=== PATIENT | female | born 1960 | race Caucasian/White ===

== ENCOUNTER 2018-02-13 15:03 | Emergency (ER) | payer OTHER ==
--- NOTE | 2018-02-13 15:44 | ED Physician Documentation ---
History of Present Illness - Stated complaint Stated Complaint: LF CALF PX - Chief complaint Chief Complaint: Ext Problem - History obtained from History obtained from: Patient - History of Present Illness Timing: How many weeks ago (0.5) Pain level max: 5 Pain level now: 4 Improved by: rest Worsened by: walking - Additonal information Additional information: Patient is visiting from [facility]. States she has had a tightness in her left calf for the past week and a half. [place] she felt a pop in the left calf and had increasing pain. Has not had any recent long distance travel, surgeries or immobilization. No history of DVT. No redness or swelling. Pain is worse with movement and better with rest Review of Systems Constitutional: denies: Fever, Chills Cardiac: denies: Chest pain / pressure, Palpitations Respiratory: denies: Cough, Wheezing GI: denies: Abdominal Pain, Vomiting, Diarrhea Skin: denies: Rash Musculoskeletal: denies: Neck pain, Back pain Neurologic: denies: Headache PD PAST MEDICAL HISTORY - Past Medical History Past Medical History: No Cardiovascular: None Respiratory: None Neuro: None Endocrine/Autoimmune: None GI: None [employer]PER[employer]OR: None : None HEENT: None Psych: None Musculoskeletal: None Derm: None - Past Surgical History Past Surgical History: Yes /[employer]PER[employer]OR: Hysterectomy - Present Medications Home Medications: Ambulatory Orders Medication Instructions Recorded Confirmed Ibuprofen [Motrin] 800 mg PO Q8H PRN #30 tablet 02/13/18 - Allergies Allergies/Adverse Reactions: Allergies Allergy/AdvReac Type Severity Reaction Status Date / Time No Known Drug Allergies Allergy Verified 02/13/18 15:22 - Social History Does the pt smoke?: No Smoking Status: Never smoker Does the pt drink ETOH?: Yes Does the pt have substance abuse?: No - Immunizations Immunizations are current?: Yes - POLST Patient has POLST: No PD ED PE NORMAL - Vitals Vital signs reviewed: Yes - General General: Alert and oriented X 3, No acute distress - HEENT HEENT: Moist mucous membranes - Neck Neck: Supple, no meningeal sign - Cardiac Cardiac: RRR - Respiratory Respiratory: No respiratory distress, Clear bilaterally - Derm Derm: Warm and dry - Extremities Extremities: Other (L calf - Mild tenderness to palpation mid calf. No palpable cord. Neurovascularly intact. Chirinos's test indicates an intact Achilles) - Neuro Neuro: Alert and oriented X 3 Results - Vitals Vitals: Vital Signs - 24 hr 02/13/18 02/13/18 15:19 17:35 Temperature 36.5 C 36.6 C Heart Rate 102 H 85 Respiratory 19 14 Rate Blood Pressure 149/92 H 132/110 H O2 Saturation 96 99 Oxygen O2 Source Room air - Rads (name of study) Duplex ultrasound left lower extremity Radiology: Prelim report reviewed, EMP read contemporaneously, See rad report (No DVT) PD MEDICAL DECISION MAKING - ED course Complexity details: reviewed results, re-evaluated patient, considered differential, d/w patient ED course: Patient is a 57-year-old female who presents to the emergency department with what appears to be a left calf strain. No evidence of Achilles injury. Placed in an Dustin wrap around the calf for comfort and feels better. Will make weightbearing as tolerated. No DVT on ultrasound. Patient counseled regarding signs and symptoms for which I believe and urgent re-evaluation would be necessary. Patient with good understanding of and agreement to plan and is comfortable going home at this time This document was made in part using voice recognition software. While efforts are made to proofread this document, sound alike and grammatical errors may occur. - Sepsis Event Vital Signs: Vital Signs - 24 hr 02/13/18 02/13/18 15:19 17:35 Temperature 36.5 C 36.6 C Heart Rate 102 H 85 Respiratory 19 14 Rate Blood Pressure 149/92 H 132/110 H O2 Saturation 96 99 Oxygen O2 Source Room air Departure - Departure Disposition: 01 Home, Self Care Clinical Impression: Strain of calf muscle Qualifiers: Encounter type: initial encounter Laterality: left Qualified Code(s): S86.812A - Strain of other muscle(s) and tendon(s) at lower leg level, left leg, initial encounter Condition: Good Instructions: ED Strain Muscle Ext Follow-Up: KAT PRIETO MD [Primary Care Provider] - Within 1 week Prescriptions: Ibuprofen [Motrin] 800 mg PO Q8H PRN #30 tablet PRN Reason: PAIN &/OR FEVER Comments: Your ultrasound is normal today. This likely represents a muscular strain. You may bear weight as tolerated. Return if you worsen. Discharge Date/Time: 02/13/18 17:37
[2018-02-13 17:36] VITALS: BP 132/110
--- NOTE | 2018-02-13 17:42 | Ultrasound Report ---
Reason: L calf pain x1.5 weeks Procedure Date: 02/13/2018 Accession Number: [id number] / [id number] Procedure: US - Duplex Ext Veins Left CPT Code: FULL RESULT: EXAM: LEFT LOWER EXTREMITY VENOUS ULTRASOUND EXAM DATE: 02/13/2018 04:33 PM. CLINICAL HISTORY: Left calf pain x 1.5 weeks. COMPARISON: None. TECHNIQUE: Real-time sonographic vascular imaging was performed by the helper coordinator through the lower extremity utilizing both color-flow and Doppler spectral analysis. Multiple business development representative static images were saved for review. FINDINGS: Common Femoral Vein (CFV): Normal. CFV-GSV Junction: Normal. Profunda Femoral Vein (PFV): Normal. Femoral Vein (FV) Prox: Normal. Femoral Vein (FV) Mid: Normal. Femoral Vein (FV) Dist: Normal. Popliteal Vein: Normal. Posterior Tibial Veins: Normal. Peroneal Veins: Normal. Other: Limited visualization of the posterior tibial and peroneal veins. IMPRESSION: No evidence for deep venous thrombosis. See above. [facility]
== END 2018-02-13 17:37 | disposition home or self-care (01) ==
LOC: ED 15:03
DX: S86.812A Strain of other muscle(s) and tendon(s) at lower leg level, left leg, initial encounter (principal); X58.XXXA Exposure to other specified factors, initial encounter; Y92.832 Beach as the place of occurrence of the external cause; Y93.01 Activity, walking, marching and hiking
CPT/HCPCS: 99283